=== PATIENT | female | born 1955 | race Caucasian/White ===

== ENCOUNTER 2016-08-26 12:34 | Outpatient (CLI) | payer OTHER ==
--- NOTE | 2016-08-26 13:28 | DIAGNOSTIC IMAGING REPORT ---
PROCEDURE: US VENOUS - LEFT EXT INDICATION: LLL PAIN TECHNIQUE: Duplex sonography of the deep venous system in the left lower extremity was performed. Compression and augmentation techniques were used. COMPARISON: None. FINDINGS: Each interrogated segment of deep vein from the common femoral vein into the calf veins demonstrates normal compressibility, augmentation and/or color Doppler flow without filling defect. No evidence of significant soft-tissue edema, soft-tissue mass or cyst. IMPRESSION: 1. No deep venous thrombosis in the left lower extremity.
--- NOTE | 2016-08-26 15:18 | DIAGNOSTIC IMAGING REPORT ---
PROCEDURE: MG BILATERAL SCREENING W/CAD INDICATION: SCREENING. Mother with a history of breast cancer. TECHNIQUE: Bilateral CC and MLO digital views. COMPARISON: Mammograms 06/30/2015, 03/22/2014 and 02/27/2013. FINDINGS: Computer-aided detection applied. Mildly dense. No change. IMPRESSION: 1. Negative mammogram RESULT CODE: 1- Negative. A. A negative report should not delay biopsy if a dominant or clinically suspicious mass is present. 10-15% of cancers are not identified by x-ray. B. A negative report may reinforce clinical impression. C. Adenosis and dense breasts may obscure an underlying neoplasm. D. False positive reports average 6-10%. E.. A yearly screening mammogram is recommended. A reminder letter will be scheduled.
== END 2016-08-26 23:00 ==
LOC: MAM SRH 12:34
DX: M79.662 Pain in left lower leg (principal); Z12.31 Encounter for screening mammogram for malignant neoplasm of breast; Z80.3 Family history of malignant neoplasm of breast

== ENCOUNTER 2016-08-30 09:05 | Outpatient (CLI) | payer OTHER ==
--- NOTE | 2016-08-30 10:15 | DIAGNOSTIC IMAGING REPORT ---
PROCEDURE: XR ANKLE 3 OR 4 VIEWS - LEFT INDICATION: L LOWER LEG/ANKLE PAIN TECHNIQUE: Four views. COMPARISON: MRI of the left foot dated 06/03/2011 FINDINGS: There is an avulsion fracture measuring 3-4 mm off the lateral aspect of the tip of the lateral malleolus. There is an old ununited transverse fracture (9 mm fragment) off the tip of the lateral malleolus that is unchanged from the 2012 MRI. The ankle mortise is intact. IMPRESSION: 1. New avulsion fracture off the tip of lateral malleolus measuring 3-4 mm.
== END 2016-08-30 23:00 ==
LOC: XR SRH 09:05
DX: S82.65XA Nondisplaced fracture of lateral malleolus of left fibula, initial encounter for closed fracture (principal)